=== PATIENT | female | born 1970 | race Caucasian/White ===

== ENCOUNTER → 2016-07-21 | Day surgery (SDC) | payer OTHER ==
[~2016-07-21] MED LIST: FENTANYL PF 100 MCG/2 ML VIAL. IV PRN; HYDR-79 PO; HYDROMORPHONE 2 MG/ML VIAL. IV PRN; IV RINGERS,LACTATED 1000ML 1,000 ML IV SCH; LIDOCAINE 1% 1 ML SYRINGE. ID PRN; LIDOCAINE 2% PF Vial for OR 5 ML VIAL. ONE; MORPHINE SULFATE 2 MG/ML DISP.SYRIN. IV PRN; MULT1TAB52 PO; ONDANSETRON PF 4 MG/2 ML VIAL. IV PRN; PROCHLORPERAZINE 10 MG/2 ML VIAL. IV PRN; PROPOFOL 40 ML IV ONE; TRAM50TA PO
[2016-07-21 09:53] VITALS: BP 114/53
--- NOTE | 2016-07-22 16:34 | PATHOLOGY ---
PATHOLOGY REPORT * * * * * * * * FINAL DIAGNOSIS: A. Terminal ileum biopsy: - No significant pathologic abnormalities. B. Colon biopsy, sigmoid colon polyp: - Tubular adenoma. COMMENT: There is no high grade dysplasia or evidence of malignancy. (JPM:csd; d/t: 07/22/2016) REPORT ELECTRONICALLY SIGNED BY: Boris Rudolph M.D. DATE/TIME: 07/22/2016 16:33 * * * * * * * * GROSS PATHOLOGY: A. Received in formalin labeled "Pili Miller terminal ileum," are two segments of frank soft tissue measuring 0.5 x 0.4 x 0.1 cm in aggregate dimensions and ranging from 0.3 to 0.4 cm in maximum dimension. The specimen is submitted entirely in cassette A1. B. Received in formalin labeled "Pili Miller, sigmoid polyp," is a segment of frank soft tissue measuring 0.5 cm in maximum dimension. The specimen is submitted entirely in cassette B1. (CAA; 07/21/2016) INITIAL CPT CODE(S): A; 00229 B; 31070 Professional services performed [place] [place] [address] Technical services performed by [facility] at [address] [place] [address] [address], [place] [address]. SPECIMEN(S) RECEIVED: A.Terminal ileum biopsy B.Sigmoid polyp CLINICAL HISTORY: Abdominal pain PATIENT: PILI MILLER /AGE: 1102/05/1970 (Age: 46) PATIENT #: [id number] ALT CASE #: SPECIMEN COLLECTION DATE: 07/21/2016 SPECIMEN RECEIVED DATE: 07/21/2016 [facility] - [address] [place] [address] - PHONE: [phone] * * * END OF REPORT * * *
== END | disposition home or self-care (01) ==
LOC: ENDOS 07:51
PROVIDERS: ATTEND Internal Medicine Gastroenterology
DX: K64.0 First degree hemorrhoids (principal); D12.5 Benign neoplasm of sigmoid colon; Z72.89 Other problems related to lifestyle; Z90.710 Acquired absence of both cervix and uterus
CPT/HCPCS: 45380; 45385; 99156; J2704

== ENCOUNTER → 2018-12-04 | Outpatient (CLI) | payer OTHER ==
[2016-07-21 09:53] VITALS: BP 114/53
[~2018-12-04] MED LIST changes: -FENTANYL PF 100 MCG/2 ML VIAL. IV PRN; -HYDR-79 PO; +HYDROCODONE-IB1 EAC3 PO; -HYDROMORPHONE 2 MG/ML VIAL. IV PRN; -IV RINGERS,LACTATED 1000ML 1,000 ML IV SCH; -LIDOCAINE 1% 1 ML SYRINGE. ID PRN; -LIDOCAINE 2% PF Vial for OR 5 ML VIAL. ONE; -MORPHINE SULFATE 2 MG/ML DISP.SYRIN. IV PRN; -ONDANSETRON PF 4 MG/2 ML VIAL. IV PRN; -PROCHLORPERAZINE 10 MG/2 ML VIAL. IV PRN; -PROPOFOL 40 ML IV ONE
--- NOTE | 2018-12-04 13:44 | KCIC ---
Examination: MRI of the left humerus HISTORY: History of left arm pain Comparison: None available. TECHNIQUE: Multiplanar, multisequence MR imaging of the left humerus were performed without contrast. FINDINGS: The alignment of the humerus grossly appears unremarkable. There is no acute fracture or dislocation identified. Faint patchy trabecular edema identified in the humerus head. Minimal shoulder joint effusion identified. Mild increased T2 signal identified about the supraspinatus tendon partially visualized. IMPRESSION: 1. Faint patchy trabecular edema identified in the humerus head, nonspecific. Minimal shoulder joint effusion.If internal derangement of the shoulder is suspected, recommend MR shoulder for further evaluation. Electronically signed by: Fabián Hassan MD (12/04/2018 1:41 PM) [facility]
== END | disposition home or self-care (01) ==
LOC: KCIC MRI 10:38
PROVIDERS: ATTEND Registered Nurse
DX: R60.0 Localized edema (principal); M25.412 Effusion, left shoulder
CPT/HCPCS: 73218

== ENCOUNTER → 2018-12-06 | Outpatient (CLI) | payer OTHER ==
[2016-07-21 09:53] VITALS: BP 114/53
--- NOTE | 2018-12-06 15:39 | RAD ---
MR of left shoulder HISTORY: Left shoulder pain for 2 months. TECHNIQUE: Routine multiplanar sequences are obtained. FINDINGS: The acromioclavicular joint is degenerative with mild undersurface osteophytes. Mild signal within the rotator cuff compatible with tendinosis. No evidence of surface tear. No significant subdeltoid bursal fluid. No significant glenohumeral joint effusion. Mild signal within the posterosuperior labrum compatible with a degenerative tear. There is linear fluid signal at the base of the anteroinferior labrum, also suspicious for tear. No advanced primary osteoarthritis is seen. No acute chondral defect. Biceps tendon is intact. No bone destruction. No evidence of acute fracture. IMPRESSION: 1. Tendinosis without evidence of rotator cuff tear. 2. Small tear of the posterosuperior labrum. Suspected tear of the anteroinferior labrum. MR arthrography could further evaluate as indicated. Electronically signed by: Ja Ceron MD (12/06/2018 3:36 PM) [facility]
== END | disposition home or self-care (01) ==
LOC: MRI 10:37
PROVIDERS: ATTEND Registered Nurse
DX: S43.492A Other sprain of left shoulder joint, initial encounter (principal); M19.012 Primary osteoarthritis, left shoulder; M25.712 Osteophyte, left shoulder; X58.XXXA Exposure to other specified factors, initial encounter; Y93.89 Activity, other specified; Y92.89 Other specified places as the place of occurrence of the external cause; Y99.8 Other external cause status
CPT/HCPCS: 73221

== ENCOUNTER 2019-04-01 07:50 | Day surgery (SDC) | payer OTHER ==
[~2019-04-01] VITALS: Ht 160 cm; Wt 83.5 kg
[~2019-04-01 07:50] MED LIST changes: +HYDROmorphone 2 MG/ML VIAL IV PRN; +IV RINGERS,LACTATED 1000ML 1,000 ML IV SCH; +LIDOCAINE 1% PF 2 ML VIAL. ID PRN; +MORPHINE SULFATE 2 MG/ML VIAL. IV PRN; +ONDANSETRON PF 4 MG/2 ML VIAL. IV PRN; +PLEC3TAB PO; +PROCHLORPERAZINE 10 MG/2 ML VIAL. IV PRN; +fentaNYL PF VIAL 100 MCG/2 ML VIAL IV PRN
[2019-04-01] MEDS ORDERED: ROPIVacaine 0.5% PF 20 ML VIAL. ONE ×2 (08:59→09:24)
[2019-04-01] MEDS ORDERED: MIDAZOLAM HCL/PF 2 MG/2 ML VIAL. ONE (08:59)
[2019-04-01] MEDS ORDERED: LIDOCAINE 1% 20 ML VIAL. ONE (09:41)
[2019-04-01] MEDS ORDERED: EPINEPHrine VIAL 30 MG/30 ML VIAL ONE (09:42)
[2019-04-01] MEDS ORDERED: BUPIVACAINE MPF 0.5% 30 ML VIAL. ONE ×2 (09:42→09:53)
[2019-04-01] MEDS ORDERED: EPINEPHrine 1 MG/ML VIAL ONE (09:53)
[2019-04-01] MEDS ORDERED: DEXAMETHASONE SOD PHOS 20 MG/5 ML VIAL. ONE (09:53)
[2019-04-01] MEDS ORDERED: PROPOFOL 20 ML IV ONE (10:49)
[2019-04-01] MEDS ORDERED: DEXAMETHASONE SOD PHOS 4 MG/ML VIAL ONE (10:49)
[2019-04-01] MEDS ORDERED: KETAMINE HCL IN NACL, ISO-OSM 50 MG/5 ML SYRINGE ONE (10:49)
[2019-04-01] MEDS ORDERED: ONDANSETRON PF 4 MG/2 ML VIAL. ONE (10:49)
[2019-04-01] MEDS ORDERED: FAMOTIDINE 20 MG/2 ML VIAL ONE (10:49)
[2019-04-01] MEDS ORDERED: KETOROLAC 30 MG/ML VIAL. ONE (10:49)
[2019-04-01] MEDS ORDERED: ROCURONIUM 50 MG/5 ML VIAL. ONE (10:50)
[2019-04-01] MEDS ORDERED: ceFAZolin 2GM PREMIX 2 GM/50 ML BAG IV ONE (11:00)
--- NOTE | 2019-04-01 11:12 | DISCH ---
DISCHARGE INSTRUCTIONS Condition on Discharge Condition on Discharge: Stable Activity After Discharge Activity Instructions for Disc: Avoid exertion, Other, see below Other activity instructions: arm to remain in sling Bathing Instructions: Shower-keep dressing dry Weight Bearing Status after Di: Non weight bearing Diet after Discharge Diet after Discharge: Regular Wound Incision Care Wound/Incision Care: Ice to area for comfort, Keep wound/cast CDI, Change dressing, No wound care needed Other wound/incision instructi: ok to change dressing after [address] after DC Call your doctor for: Concerns you may have Follow-Up Follow up with: Johnnie in 2 wks RL HARDING II, MD Apr 01, 2019 11:12
[2019-04-01] MEDS ORDERED: hydrALAZINE 20 MG/ML VIAL. ONE (11:50)
[2019-04-01] MEDS ORDERED: fentaNYL PF VIAL 100 MCG/2 ML VIAL ONE ×2 (11:50→12:50)
[2019-04-01] MEDS ORDERED: 0.9 % SODIUM CHLORIDE 20 ML VIAL. IJ ONE (11:51)
[2019-04-01] MEDS ORDERED: NEOSTIGMINE METHYLSULFATE 5 MG/5 ML SYRINGE. ONE (12:17)
[2019-04-01] MEDS ORDERED: GLYCOPYRROLATE 1 MG/5 ML VIAL. ONE (12:17)
[2019-04-01] MEDS ORDERED: oxyCODONE/APAP 5/325 1 TAB TABLET PO ONE (13:00)
[2019-04-01] MEDS ORDERED: OXYC-325 PO (13:01)
[2019-04-01] MEDS ORDERED: ONDA8TAB9 PO (13:02)
[2019-04-01] MEDS ORDERED: DOCU-109 PO (13:02)
--- NOTE | 2019-04-01 13:19 | PDOC4 ---
Operative Note Operative Note Date of procedure: 04/01/2019 Surgeon: Darryn Harding Acidizer: Rohit Laboy, certified midwife Preoperative diagnosis: Left shoulder rotator cuff tear Postoperative diagnosis: same Procedure performed: arthroscopic left shoulder rotator cuff repair Anesthesia: Gen. plus regional nerve block Findings: #1 fraying at labrum, labrum was intact circumferentially. Unremarkable glenohumeral cartilage #2 no loose bodies #3 unremarkable biceps tendon #4 fraying and disorganization of fibers at supraspinatus viewed intra- articularly #5 remainder rotator cuff unremarkable Blood loss: 5mL Components inserted: [employer] Helacoil anchor Reason for procedure: Patient is a very pleasant woman who has had worsening left shoulder pain. Clinical and radiographic examination, including MRI were consistent with the preoperative diagnosis. She had tried physical therapy, anti-inflammatories, and an injection and these did not give her good relief. Due to her symptoms and dysfunction, we had a discussion of the risks, benefits, alternatives the above surgery and he wished to proceed. Description of procedure: Patient was greeted in the preoperative holding area where the correct extremity was verified and marked. They were taken to the preoperative holding area where the anesthesiology team placed a regional nerve block. The patient was then taken back to the operative suite and antibiotics were started as they were brought back. Once in the operative room, the patient was transferred gently supine to the operating room table after successful induction of a general anesthetic. After this, she was sat up in a beachchair position maintaining her C-spine in neutral position, large pad under her legs, she was secured to the bed. We then prepped and draped her left upper extremity and shoulder girdle in our usual sterile fashion, we conducted our standard preoperative timeout. I palpated and marked surface anatomy for my planned portal sites. I then used a spinal needle to localize a posterior superior portal and incised skin in accordance with this. After this, I introduced the blunt arthroscopic trocar into the glenohumeral joint followed by the camera. I used a spinal needle to localize an anterosuperior portal and incised skin in accordance with this. I then introduced my arthroscopic probe and conducted my diagnostic arthroscopy with the above-noted findings. After this, I repositioned the camera into the subacromial space and performed a bursectomy with combination of shaver and electrocautery device. I then identified the rotator cuff tear and I debrided the pathologic tendon and prepared my footprint. I then placed my helacoil anchor and shuttled limbs through in a simple configuration. I tied these down with arthroscopic knot- tying techniques. The tear was stable to probing and to gentle rotation of the arm. I then removed all loose bony debris and the excess arthroscopic fluid. I took my final pictures prior to this. After this, all the excess fluid and instrumentation was removed. The portals were closed with simple interrupted 3-0 nylon. Sterile dressing was applied followed by an abduction pillow sling. Patient tolerated surgery well. No complications. At the conclusion, she was laid supine and transferred gently supine to the recovery room cart and taken to the PACU in a stable and extubated condition. Postoperative plan is discharge her home, nonweightbearing for 4 weeks. Well get her started on physical therapy. She will follow up with me in 2 weeks, sooner should a problem arise. DARRYN HARDING II, MD Apr 01, 2019 13:19
[2019-04-01 13:48] VITALS: BP 129/68
== END 2019-04-01 14:45 | disposition home or self-care (01) ==
LOC: SURG 07:50
PROVIDERS: ATTEND Orthopaedic Surgery Sports Medicine
DX: M75.112 Incomplete rotator cuff tear or rupture of left shoulder, not specified as traumatic (principal); M24.112 Other articular cartilage disorders, left shoulder; G43.909 Migraine, unspecified, not intractable, without status migrainosus; E66.9 Obesity, unspecified; Z68.30 Body mass index [BMI] 30.0-30.9, adult; Z90.710 Acquired absence of both cervix and uterus; Z72.89 Other problems related to lifestyle
CPT/HCPCS: 29826; 29827; 64415; A7015; C1713; C1782; J0171; J0360; J0696; J0780; J1100; J1885; J2250; J2405; J2704; J2710; J2795; J3010; J3490

== ENCOUNTER → 2021-04-23 | Day surgery (SDC) | payer OTHER ==
[~2021-04-23] VITALS: Ht 160 cm; Wt 82.0 kg
[~2021-04-23] MED LIST changes: +DOCU-109 PO; +HYDROmorphone 2 MG/ML INJ. IVP PRN; -HYDROmorphone 2 MG/ML VIAL IV PRN; -LIDOCAINE 1% PF 2 ML VIAL. ID PRN; +MORPHINE SULFATE 2 MG/ML INJ. IVP PRN; -MORPHINE SULFATE 2 MG/ML VIAL. IV PRN; +MULT-445 PO; -MULT1TAB52 PO; +ONDA8TAB9 PO; -ONDANSETRON PF 4 MG/2 ML VIAL. IV PRN; +OXYC-325 PO; -PLEC3TAB PO; +PLEC3TAB2 PO; -PROCHLORPERAZINE 10 MG/2 ML VIAL. IV PRN; +PROCHLORPERAZINE 10 MG/2 ML VIAL. IVP PRN; +PROPOFOL 10 MG/ML (20ML) VIAL. IV ONE; -fentaNYL PF VIAL 100 MCG/2 ML VIAL IV PRN; +fentaNYL PF VIAL 100 MCG/2 ML VIAL IVP PRN
[2021-04-23 09:37] VITALS: BP 137/74
--- NOTE | 2021-04-23 13:10 | HP ---
DATE OF SERVICE: 04/23/2021 ADMIT DATE: 04/23/2021 UPDATED HISTORY AND PHYSICAL REFERRING PHYSICIAN: Wendy Barraza. REASON FOR CONSULTATION: History of colon polyps. HISTORY OF PRESENT ILLNESS: A 51-year-old female whose past medical history is significant for constipation, colonic polyps, is seen for interval colonoscopy. Her bowels are often times constipated with her analgesics, which she takes for chronic pain. FAMILY HISTORY: Negative for colorectal cancer. There has been no melena and/or hematochezia. Weight and appetite are stable and her last colonoscopy was over 5 years ago. She is otherwise without additional complaints. PAST MEDICAL HISTORY: Chronic constipation, colonic polyps, chronic abdominal pain. ALLERGIES: SULFA. MEDICATIONS: Include docusate, Zofran, oxycodone and Trulance. FAMILY AND SOCIAL HISTORY: Diabetes with multiple family members, [place] with her father, pancreatic cancer with her father. SOCIAL HISTORY: She is a social drinker, nonsmoker. PAST SURGICAL HISTORY: Jaw surgery and hysterectomy. REVIEW OF SYSTEMS: Per records. PHYSICAL EXAMINATION: GENERAL: Reveals a well-nourished, well-developed female who is alert, cooperative, in no acute distress. VITAL SIGNS: Pulse 80, respiratory rate is 15, blood pressure 120/80. LUNGS: Clear. CARDIOVASCULAR: Reveals an S1, S2, without S3, S4 or appreciable murmur. ABDOMEN: Reveals a soft abdomen, normal bowel sounds, without appreciable hepatosplenomegaly. EXTREMITIES: Reveals no cyanosis, clubbing or edema. IMPRESSION: History of colonic polyps. Surveillance exam is recommended at this time. Risks and benefits of procedure including risk of hemorrhage and perforation with operation were discussed, the patient is willing to proceed. DOT/KAILA DR: [place] TID: [id number]
== END | disposition home or self-care (01) ==
LOC: SURG 06:30
PROVIDERS: ATTEND Internal Medicine Gastroenterology
DX: K59.00 Constipation, unspecified (principal); G89.29 Other chronic pain; R10.9 Unspecified abdominal pain; K64.0 First degree hemorrhoids; K57.30 Diverticulosis of large intestine without perforation or abscess without bleeding; K63.89 Other specified diseases of intestine; Z86.010 Personal history of colon polyps; Z90.710 Acquired absence of both cervix and uterus; Z98.890 Other specified postprocedural states; Z79.899 Other long term (current) drug therapy; Z82.49 Family history of ischemic heart disease and other diseases of the circulatory system; Z83.3 Family history of diabetes mellitus; Z80.0 Family history of malignant neoplasm of digestive organs
CPT/HCPCS: 45378; J2704